=== PATIENT | male | born 1985 | race Caucasian/White ===

== ENCOUNTER 2016-12-15 16:15 | Emergency (ER) | payer OTHER ==
--- NOTE | 2016-12-15 16:53 | XR ---
EXAMINATION TYPE: XR shoulder complete LT DATE OF EXAM: 12/15/2016 4:47 PM COMPARISON: 08/24/2014 HISTORY: Pain fall and shoulder TECHNIQUE: Shoulder examined in 3 views FINDINGS: The humeral head articulates with the glenoid. Acromioclavicular junction is normal. 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 No acute fractures or dislocations are evident. A follow up study can be performed 7-10 days from acute trauma for continued pain. IMPRESSION: 1. No acute osseous abnormality. 2. 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
[2016-12-15] MEDS ORDERED: KETOROLAC 60 MG/2 ML VIAL IM STA (17:13)
--- NOTE | 2016-12-15 17:13 | ED ---
Upper Extremity HPI - General Chief Complaint: Extremity Injury, Upper Stated Complaint: shoulder pain Time Seen by Provider: 12/15/16 16:30 Source: patient, RN notes reviewed Mode of arrival: ambulatory Limitations: no limitations - History of Present Illness Initial Comments: 31-year-old male presents emergency Department chief complaint of left shoulder injury. Patient states he tripped going down onto his left shoulder. Patient states he now has pain to the anterior aspect. Patient states he did not hit his head. Patient states is no elbow pain no neck pain and no wrist pain. Patient states that he was concerned due to the pain and the mechanism of injury he should be seen. Patient with history of a clavicle fracture and repair in the shoulder in the past as well. Patient states movement or touch seems to make it worse.Patient denies any recent fever, chills, shortness of breath, chest pain, back pain, abdominal pain, nausea vomiting, numbness or tingling, dysuria or hematuria, constipation or diarrhea, headaches or visual changes, or any other current symptoms. Place: home - Related Data Home Medications Medication Instructions Recorded Confirmed Cyclobenzaprine [Flexeril] 10 mg PO HS 12/15/16 12/15/16 Gabapentin 800 mg PO DAILY 12/15/16 12/15/16 Ibuprofen [Motrin] 800 mg PO DAILY 12/15/16 12/15/16 Allergies Allergy/AdvReac Type Severity Reaction Status Date / Time No Known Allergies Allergy Verified 12/15/16 16:40 Review of Systems ROS Statement: Those systems with pertinent positive or pertinent negative responses have been documented in the HPI. ROS Other: All systems not noted in ROS Statement are negative. Past Medical History Additional Past Medical History / Comment(s): back pain History of Any Multi-Drug Resistant Organisms: None Reported Past Surgical History: Tonsillectomy Additional Past Surgical History / Comment(s): carpal tunnel tate Past Psychological History: No Psychological Hx Reported Smoking Status: Current every day smoker Past Alcohol Use History: None Reported Past Drug Use History: None Reported General Exam - General Exam Comments Initial Comments: General: The patient is awake and alert, in no distress, and does not appear acutely ill. Neck: The neck is supple, there is no tenderness or JVD. Cardiovascular: There is a regular rate and rhythm. No murmur, rub or gallop is appreciated. Respiratory: Lungs are clear to auscultation, respirations are non-labored, breath sounds are equal. No wheezes, stridor, rales, or rhonchi. Musculoskeletal: Sensation to the pubis pulses. Left upper extremity. Full range of motion of the left elbow and wrist. Patient only has about 45% range of motion in all interiano on the left arm. Most tenderness is anterior to the shoulder. Patient has pain on all special testing such as drop arm test. Neurological: CN II-XII intact, There are no obvious motor or sensory deficits. Coordination appears grossly intact. Speech is normal. Skin: Skin is warm and dry and no rashes or lesions are noted. Psychiatric: Normal mood and affect. Limitations: no limitations Course Vital Signs 12/15/16 16:27 Temperature 97.8 F Pulse Rate 93 Respiratory 20 Rate Blood Pressure 129/82 O2 Sat by Pulse 99 Oximetry Medical Decision Making - Medical Decision Making 31-year-old male presents with history of left shoulder strain. We discussed the x-ray results but we also discussed that there could be a rotator cuff injury. We discussed follow-up with dorsal return parameters and all patient's questions. He stated that he understood yet still controlled plan. This time the patient will be discharged home. - Radiology Data Radiology results: report reviewed, image reviewed Disposition Clinical Impression: Sprain of left shoulder Disposition: HOME SELF-CARE Condition: Stable Instructions: Rotator Cuff Injury (ED) Additional Instructions: Please use medication as discussed. Please follow up with family doctor if symptoms have not improved over the next two days. Please return to the emergency room if your symptoms increase or worsen or for any other concerns. Referrals: Alpesh Rosas DO [Doctor of Osteopathic Medicine] - 1-2 days Time of Disposition: 17:13
[2016-12-15 17:21] VITALS: BP 117/83; PULSE 81; RESP 16; TEMP 97.5
== END 2016-12-15 17:35 | disposition home or self-care (01) ==
LOC: EC 16:15
DX: S43.402A Unspecified sprain of left shoulder joint, initial encounter (principal); W01.0XXA Fall on same level from slipping, tripping and stumbling without subsequent striking against object, initial encounter; F17.200 Nicotine dependence, unspecified, uncomplicated; Z79.1 Long term (current) use of non-steroidal anti-inflammatories (NSAID); Z79.899 Other long term (current) drug therapy
CPT/HCPCS: 73030; 99283; 96372; J1885

== ENCOUNTER 2021-05-15 10:25 | Day surgery (SDC) | payer OTHER ==
[2021-05-13 12:25] VITALS: BMI 25.7
[2021-05-15] MEDS ORDERED: SODIUM CHLORIDE 0.9% 500 ML 500 ML IV ONE (11:08)
[2021-05-15 11:20] VITALS: TEMP 97.9
[2021-05-15] MEDS: BENZOCAINE SPRAY 1 CAN MUCOUS MEM ONE ×2 (12:35→12:40)
[2021-05-15] MEDS ORDERED: MIDAZOLAM 2 MG/2 ML VIAL IV ONE ×2 (12:41→12:47)
[2021-05-15] MEDS: fentaNYL (PF) 50 MCG/ML 2 ML AMP IV ONE ×3 (12:41→13:01)
[2021-05-15] MEDS: MIDAZOLAM 2 MG/2 ML VIAL IV ONE ×2 (12:47→12:53)
[2021-05-15 12:59] VITALS: RESP 16
--- NOTE | 2021-05-15 13:35 | ECHOT ---
TRANSESOPHAGEAL ECHOCARDIOGRAM DATE OF SERVICE: May 15, 2021 PERFORMING PHYSICIAN: Tenzin Yuan MD. PROCEDURE PERFORMED: Transesophageal echocardiogram. INDICATION: Right ventricular dilatation with severe tricuspid regurgitation. COMPLICATION: None. LEVEL OF SEDATION: Moderate with sedation length of 30 minutes. PROCEDURE DESCRIPTION: After obtaining informed consent, the patient was brought to the transesophageal echocardiogram. The pulse oximetry and heart rate monitors were attached to the patient. Subsequently, the patient was given a total of 6 mg of Versed and 100 mcg of fentanyl on divided doses. In spite of that, intubating the patient was extremely hard because the patient did not tolerate the probe down in the esophageal. We have to intubate and extubate for 3 times. By the end, we did perform the study but was technically very difficult because of the patient hacking as well as nausea feeling. The study was performed using 2D echo, as well as color Doppler, as well as pulse and continuous-wave Doppler. FINDINGS: The left ventricular dimension and systolic function appeared to be within normal limits. The ejection fraction appeared to be within normal limits. The right ventricle appeared to be dilated. Tricuspid valve was not well visualized. The mitral valve seems to be normal. The aortic valve appeared to be normal as well. No evidence of pericardial effusion identified. CONCLUSION: 1. Technically very difficult study. 2. Normal left ventricular dimension and systolic function. 3. Dilated right ventricle with normal function. 4. Overall normal intracardiac valves. Please note that the study was difficult and the valves were not well visualized. 5. No evidence of pericardial effusion. MMODL / IJN: [id number] /
[2021-05-15 14:34] VITALS: BP 99/62; PULSE 60
== END 2021-05-15 14:27 | disposition home or self-care (01) ==
LOC: CATHCVL 10:25
PROVIDERS: ATTEND Internal Medicine Interventional Cardiology
DX: I51.7 Cardiomegaly (principal); I73.9 Peripheral vascular disease, unspecified; F17.200 Nicotine dependence, unspecified, uncomplicated
CPT/HCPCS: 93312; 93320; 93325; J2250; J3010

== ENCOUNTER 2023-10-18 15:15 | Emergency (ER) | payer OTHER ==
[2023-10-18 16:01] VITALS: BP 141/66; PULSE 77; RESP 16; TEMP 98.2
--- NOTE | 2023-10-18 17:26 | ED ---
General Adult HPI - General Chief complaint: Recheck/Abnormal Lab/Rx Stated complaint: withdrawl symptoms Time Seen by Provider: 10/18/23 16:18 Source: patient, RN notes reviewed Mode of arrival: ambulatory Limitations: no limitations - History of Present Illness Initial comments: 37-year-old male presents emergency department for evaluation of withdrawal symptoms. Patient states that he is out of his Suboxone days ago. He states that he's been increasingly agitated and emotional since running out of his medication. He states that he has been unable to get in with his primary care provider as he has no other practice. - Related Data Home Medications Medication Instructions Recorded Confirmed Buprenorphine HCl/Naloxone HCl 1 each SL DAILY 05/13/21 05/15/21 [Suboxone 8 mg-2 mg Sl Film] Famotidine [Pepcid] 40 mg PO BID PRN 05/13/21 05/15/21 Fluticasone Propion/Salmeterol 1 inhalation PO BID PRN 05/13/21 05/15/21 [Advair 250-50 Diskus] Loratadine [Claritin] 10 mg PO DAILY 05/13/21 05/15/21 Ondansetron [Zofran] 4 mg PO Q12HR PRN 05/13/21 05/15/21 Allergies Allergy/AdvReac Type Severity Reaction Status Date / Time No Known Allergies Allergy Verified 10/18/23 15:52 Review of Systems ROS Statement: Those systems with pertinent positive or pertinent negative responses have been documented in the HPI. ROS Other: All systems not noted in ROS Statement are negative. Past Medical History Past Medical History: COPD, GERD/Reflux Additional Past Medical History / Comment(s): back pain, shortness of breath, lightheaded, tinnitus tate ears History of Any Multi-Drug Resistant Organisms: None Reported Past Surgical History: Orthopedic Surgery, Tonsillectomy Additional Past Surgical History / Comment(s): carpal tunnel tate, bone graph from rt hip to lt shoulder, epidural steriod injections neck and back, Past Anesthesia/Blood Transfusion Reactions: No Reported Reaction Past Psychological History: ADD/ADHD, Anxiety, Depression Smoking Status: Current every day smoker Past Alcohol Use History: None Reported Past Drug Use History: None Reported - Past Family History Mother Family Medical History: No Reported History Father Family Medical History: Cancer, Coronary Artery Disease (CAD) Additional Family Medical History / Comment(s): awaiting heart surgery. [place] triple heart bypass Brother(s) Family Medical History: Coronary Artery Disease (CAD) Additional Family Medical History / Comment(s): pig valve placed in heart General Exam Limitations: no limitations General appearance: alert, anxious Head exam: Present: atraumatic, normocephalic, normal inspection Eye exam: Present: normal appearance, PERRL, EOMI. Absent: scleral icterus, conjunctival injection, periorbital swelling ENT exam: Present: normal exam, mucous membranes moist Respiratory exam: Present: normal lung sounds bilaterally. Absent: respiratory distress, wheezes, rales, rhonchi, stridor Cardiovascular Exam: Present: regular rate, normal rhythm, normal heart sounds. Absent: systolic murmur, diastolic murmur, rubs, gallop, clicks GI/Abdominal exam: Present: soft, normal bowel sounds. Absent: distended, tenderness, guarding, rebound, rigid Extremities exam: Present: normal inspection, full ROM, normal capillary refill. Absent: tenderness, pedal edema, joint swelling, calf tenderness Back exam: Present: normal inspection Neurological exam: Present: alert, oriented X3 Psychiatric exam: Present: agitated Skin exam: Present: warm, dry, intact, normal color. Absent: rash Course Vital Signs 10/18/23 15:48 Temperature 98.2 F Pulse Rate 77 Respiratory 16 Rate Blood Pressure 141/66 O2 Sat by Pulse 97 Oximetry Medical Decision Making - Medical Decision Making Was pt. sent in by a medical professional or institution (, PA, DIAM[employer]TER, urgent care, hospital, or residential...) When possible be specific @ -No Did you speak to anyone other than the patient for history (EMS, parent, family, police, friend...)? What history was obtained from this source @ -No Did you review nursing and triage notes (agree or disagree)? Why? @ -I reviewed and agree with nursing and triage notes Were old charts reviewed (outside hosp., previous admission, EMS record, old EKG, old radiological studies, urgent care reports/EKG's, residential records)? Report findings @ -No old charts were reviewed Differential Diagnosis (chest pain, altered mental status, abdominal pain women, abdominal pain men, vaginal bleeding, weakness, fever, dyspnea, syncope, headache, dizziness, GI bleed, back pain, seizure, CVA, palpatations, mental health, musculoskeletal)? @ -not applicable EKG interpreted by me (3pts min.). @ -none X-rays interpreted by me (1pt min.). @ -None done CT interpreted by me (1pt min.). @ -None done U/S interpreted by me (1pt. min.). @ -None done What testing was considered but not performed or refused? (CT, X-rays, U/S, labs)? Why? @ -None What meds were considered but not given or refused? Why? @ -None Did you discuss the management of the patient with other professionals (professionals i.e. Dr., PA, DIAM[employer]TER, lab, RT, psych nurse, clinical social work aide, aquatics instructor, teacher, home lending officer, telephonic case manager)? Give summary @ -No Was smoking cessation discussed for >3mins.? @ -No Was critical care preformed (if so, how long)? @ -No Were there social determinants of health that impacted care today? How? (Homelessness, low income, unemployed, alcoholism, drug addiction, transportation, low edu. Level, literacy, decrease access to med. care, snf, rehab)? @ -No Was there de-escalation of care discussed even if they declined (Discuss DNR or withdrawal of care, Hospice)? DNR status @ -No What co-morbidities impacted this encounter? (DM, HTN, Smoking, COPD, CAD, Cancer, CVA, ARF, Chemo, Hep., AIDS, mental health diagnosis, sleep apnea, morbid obesity)? @ -None Was patient admitted / discharged? Hospital course, mention meds given and route, prescriptions, significant lab abnormalities, going to OR and other pertinent info. @ -Discharged. Patient presented to the emergency department for evaluation of increased agitation after running out of his Suboxone 2 days ago. He states that he used to follow with Dr. Fairchild. He has been unable to get into a new PCP for his medication management. Discussed with patient that we are unable to prescribe Suboxone for him. Patient left prior to completion of visit and therefore AGAINST MEDICAL ADVICE. Undiagnosed new problem with uncertain prognosis? @ -No Drug Therapy requiring intensive monitoring for toxicity (Heparin, Nitro, Insulin, Cardizem)? @ -No Were any procedures done? @ -No Diagnosis/symptom? @ -suboxone withdrawal Acute, or Chronic, or Acute on Chronic? @ -acute Uncomplicated (without systemic symptoms) or Complicated (systemic symptoms)? @ -uncomplicated Side effects of treatment? @ -No Exacerbation, Progression, or Severe Exacerbation? @ -No Poses a threat to life or bodily function? How? (Chest pain, [place], [place], pneumonia, PE, COPD, DKA, ARF, appy, cholecystitis, CVA, Diverticulitis, Homicidal, Suicidal, threat to staff... and all critical care pts) @ -No Disposition Clinical Impression: Left against medical advice Disposition: LEFT AGAINST MEDICAL ADVICE Is patient prescribed a controlled substance at d/c from ED?: No Referrals: None,Stated [Primary Care Provider] - 1-2 days
== END 2023-10-18 17:22 | disposition left against medical advice (07) ==
LOC: EC 15:15
DX: F11.23 Opioid dependence with withdrawal (principal); J44.9 Chronic obstructive pulmonary disease, unspecified; K21.9 Gastro-esophageal reflux disease without esophagitis; F32.A Depression, unspecified; F41.9 Anxiety disorder, unspecified; F17.200 Nicotine dependence, unspecified, uncomplicated; Z79.51 Long term (current) use of inhaled steroids; Z79.899 Other long term (current) drug therapy; Z53.29 Procedure and treatment not carried out because of patient's decision for other reasons
CPT/HCPCS: 99283